=== PATIENT | female | born 1995 | race Hispanic/Latino ===

== ENCOUNTER → 2016-11-27 | Emergency (ER) | payer OTHER ==
[~2016-11-27] VITALS: Ht 154.9 cm; Wt 86.2 kg
[~2016-11-27] MED LIST: ONDANSETRON 4 MG ORAL DISINTEGRATING TAB (S0181) PO ONE; TYLE325C PO; ZOFR4TAB3 PO
[2016-11-27 06:28] VITALS: BP 130/71
== END | disposition home or self-care (01) ==
LOC: M ED 06:32
DX: A08.4 Viral intestinal infection, unspecified (principal)